=== PATIENT | male | born 1975 | race Caucasian/White ===

== ENCOUNTER → 2020-01-15 | Outpatient (CLI) | payer BC, OTHER ==
[~2020-01-15] VITALS: Ht 182.9 cm; Wt 81.7 kg
[~2020-01-15] MED LIST: NABUMETONE 500500 M1 PO; NEURONTIN300 MG PO
[2020-01-15 10:56] VITALS: BP 136/86
--- NOTE | 2020-01-15 11:11 | NUR ---
Pain Clinic Assessment: 1. History of Osteoarthritis: Not Applicable History of Rheumatoid Arthritis: Not Applicable 2. Height: 6 ft. 0 in. 182.9 cm. Weight: 180.2 lb. oz. 81.738 kg. Patient's BMI: 24.4 3. Vital Signs: BP: 136/86 Pulse: 70 Resp: 16 Temp: 02 Sat: 100 ECG Mon: 4. Pain Intensity: 4; 8 AT WORST 5. Fall Risk: Dizziness: N Needs help standing or walking: N Fallen in the last 3 months: N Fall risk comments: 6. Patient on Blood Thinner: None 7. History of Hypertension: Y 8. Opioid Therapy greater than 6 weeks: N Opiate Contract Signed: 9. Risk Assessment Tool Provided: 2-LOW RISK 10. Functional Assessment Tool: 11. Recreational Drug Use: Never Drug Type: Tobacco Use: Never Smoker Tobacco Type: Amount or Packs/day: How Many Years: Alcohol Use: No Frequency: Quant:
--- NOTE | 2020-01-22 09:19 | HPC ---
[facility] [place] [address] PAIN MANAGEMENT CONSULTATION Name: HELEN GEE Room #: REG SWETA Gabo#: [id number] Admission: 01/15/20 Attend Phys: Tio Turpin DO Discharge: Date of : 73 Report #: [id number] THIS REPORT FOR: cc: Tio Mae MD, James A. MD Johnson, James E. DO ~ DATE OF SERVICE: 01/15/2020 CHIEF COMPLAINT: Anterior and posterior leg pain. HISTORY OF PRESENT ILLNESS: As you know, the patient is a 44-year-old male who reports onset of anterior and posterior leg pain that began 12/20/2017. The patient has undergone multiple surgical interventions in the lumbar spine, the most recent performed was L4-L5 and L5-S1 ALIF and posterior instrumented fusion on 10/19/[address] Oconnor. This apparently improved the patient's baseline pain, but left him with anterior thigh and posterior leg pain that he describes as intermittent. He states that he has begun to experience more increasing shooting pain without inciting injury. He describes the pain as nondermatomal in distribution reporting both anterior and posterior thigh symptoms. He apparently contacted Neurosurgery to discuss his ongoing issues. He was sent for physical therapy. He has an MRI planned for next week for further evaluation of the lumbar spine, but also referred to our clinic to discuss options for treatment. He states that physical therapy has been helping. He has been in physical therapy for about 4 weeks. He states overall he is doing much better from a pain standpoint, but continues to experience intermittent symptoms. He has plans to undergo MRI of the lumbar spine per Dr. Oconnor's requesting next week. He has no new imaging for us to review today. He has been referred to our service to discuss treatment options for nondermatomal bilateral lower extremity pain involving the anterior and posterior thighs. The patient indicates pain is intermittent. He describes the pain as throbbing and sharp. He places current pain score 4/10, daily average of 4/10, the worst pain has been is 8/10. The patient states his pain is exacerbated with standing, sitting for any length of time, lying down. He states that walking, running, and working out improves his pain considerably. He has been referred to our service to discuss treatment options for nondermatomal bilateral lower extremity pain. PAST MEDICAL HISTORY: 1. Hypertension. 2. Emotional problems. PAST SURGICAL HISTORY: 1. Diskectomy, November 2005. 2. Diskectomy 2008. [address] [address] PAIN MANAGEMENT CONSULTATION Name: HELEN GEE Room #: REG [facility]#: [id number] Admission: 01/15/20 Attend Phys: Tio Turpin DO Discharge: Date of : 73 Report #: [id number] 3. Diskectomy June 2011. 4. L4-L5, L5-S1 fusion with instrumentation, 10/19/2018. SOCIAL HISTORY: The patient denies tobacco, alcohol or IV illicit drug use. He is employed as an administrative project coordinator. He is working, not receiving workmen's compensation or is trying to obtain disability benefits. He is not in litigation in regards to pain. He is unaccompanied at today's visit. REVIEW OF SYSTEMS: Positive for wearing corrective eyewear, bilateral anterior and posterior thigh pain. All other review of systems negative per 12-point review of systems other than those listed in history of present illness. Pain impact score 17 of 70 indicating mild interference of daily activities secondary to pain. ALLERGIES: No reported drug allergies. CURRENT MEDICATIONS: None. IMAGING: No imaging available. PHYSICAL EXAMINATION: VITAL SIGNS: Blood pressure 136/86, pulse is 70, respiratory rate 16 and unlabored. The patient is 100% on room air, height 6 feet tall, weight 180.2 pounds, BMI calculated 24.4. GENERAL: Well-developed, well-nourished, well-hydrated 44-year-old male appearing stated age, pain is rated today at 4/10, at worst 8/10, though this has not been present for about a month since he started physical therapy. HEENT: Normocephalic, atraumatic. Pupils equal, round and reactive to light. Extraocular muscles are intact. NEUROLOGIC: Speech is fluent. The patient deemed a good historian. LUNGS: Clear, no wheeze, rhonchi or rales. CARDIOVASCULAR: Regular. No appreciable gallop, no rub. ABDOMEN: Soft, nontender, nondistended, normoactive bowel sounds. EXTREMITIES: Show no clubbing, no cyanosis, no edema. MUSCULOSKELETAL: Lower extremity strength appears symmetrical 5/5, intact to light touch from L1 through S2 dermatomes. Seated straight leg raising negative. Supine straight leg raising negative. Darryl's test is negative. Modified Gaenslen's positive only for some axial back pain. There is limited range of motion due to fusion of the L4-L5 and L5-S1 level. There are well-healed surgical scars. Muscle bulk and tone appears symmetrical in comparing lower extremities. I am unable to elicit any unusual focal loss of sensation or loss of strength. ASSESSMENT: 1. Residual anterior thigh pain. [facility] [address] [place] [address] PAIN MANAGEMENT CONSULTATION Name: HELEN GEE Room #: REG SWETA Ayon#: [id number] Admission: 01/15/20 Attend Phys: Tio Turpin DO Discharge: Date of : 73 Report #: [id number] 2. Residual posterior thigh pain. 3. Neuropathic symptoms. 4. Chronic pain. PLAN: 1. Based on today's physical exam and history the patient has provided, the description the patient uses in regards to pain as well as the nondermatomal distribution of symptoms, it would appear the patient is suffering from chronic neuropathic symptoms. The patient comes to us today without imaging studies. Apparently, he is to undergo MRI next week. We would love to review those findings before making any decisions on more aggressive treatment options. It would appear based on the nondermatomal distribution that medication may be beneficial. We also discussed the possibility of epidural injections to address symptoms, though again given the lack of dermatomal distribution I am not confident those would provide much in the way of benefit. We also discussed other treatment options today. The following was discussed with the patient. We discussed physical therapy, stretching exercises and core strengthening from which the patient is seen about a 50% improvement in symptoms. We recommend he continue these activities. He himself reports that he improves with activity and does not do well with inactivity, recommend continuing highly active exercise program and lifestyle. We discussed medication management utilizing neuropathic medication to address his nondermatomal pain as well as a possible addition of a nonsteroidal anti-inflammatory to help with any inflammatory process that may be contributing. We also discussed that injections may be necessary, but given that we have no current imaging, I would not recommend initiating some type of injection at this time. The findings may require an injection, but at this point, we would not recommend interventional treatment. We also discussed spinal cord stimulator therapy and ultimately surgical options to address symptoms. After reviewing the risks and benefits of all proposed treatment options, the patient chose to begin with medication management. 2. We will start the patient on gabapentin starting at 600 mg p.o. at bedtime. We will then continue this for 3 nights, then increase to 900 mg p.o. at bedtime. No improvement in symptoms, no side effects of sleepiness, disorientation, confusion, mental slowing, then increase slowly every 3 days to escalate dose to 900 mg b.i.d. Again, no improvement in symptoms, no side effects, then continue the titration to reach 900 mg t.i.d. The patient was given a titration in written form to follow to escalate medications as needed. A prescription of gabapentin 300 mg tablets was sent to his local pharmacy for #[id number], to reach the titration goal of 900 mg t.i.d. 3. The patient will be started on nabumetone 500 mg dose 1 tab p.o. t.i.d. This will be used for baseline anti-inflammatory effects. He will watch for dyspepsia, worsening of blood pressure, lower extremity edema with its use. If he notes any side effects, discontinue immediately, call for further instructions. [address] [address] PAIN MANAGEMENT CONSULTATION Name: HELEN GEE Room #: REG SWETA Ayon#: [id number] Admission: 01/15/20 Attend Phys: Tio Turpin DO Discharge: Date of : 73 Report #: [id number] 4. The patient will undergo MRI of the lumbar spine per Dr. Oconnor's request next week. We will await the findings to discuss with the patient further. He will be following up with his surgeon, Dr. Oconnor in regards to those findings as well. We will come to a consensus for treatment once this imaging has been completed. Given the nondermatomal distribution of symptoms at present, I do not feel we are going to be seeing any new lateralizing disk features or increased neural foraminal stenosis. There is a possibility central canal stenosis has occurred post-surgery, though given the lack of any major trauma that should be pretty unusual, though we cannot rule it out entirely given the wide distribution of symptoms in a nondermatomal fashion. The central canal stenosis would be a potential source. We will await the findings of the MRI. 5. The patient and I did discuss that once we stabilize on a dose of medication that is appropriate, we will be returning his care to the team either his referring physician or his primary care physician to continue the therapy. We are hopeful we can obtain improved analgesic benefit quite quickly, so that the patient can continue to participate in daily activities. We wish to thank Dr. Jose Carlos Oconnor for the opportunity to see the patient in consultation. We will keep you apprised of his response to treatment as we address his nondermatomal bilateral lower extremity symptoms involving the anterior and posterior thighs. Again, we wish to thank you for the opportunity to see the patient in consultation. <ELECTRONICALLY SIGNED> By: Tio Turpin DO 01/22/20 [id number] Tio Turpin DO /nt
== END ==
LOC: PAIN 06:59
PROVIDERS: ATTEND Anesthesiology Pain Medicine
DX: M79.651 Pain in right thigh (principal); M79.652 Pain in left thigh; M79.604 Pain in right leg; M79.605 Pain in left leg; G89.29 Other chronic pain

== ENCOUNTER → 2020-02-12 | Outpatient (CLI) | payer BC, OTHER ==
[~2020-02-12] VITALS: Ht 182.9 cm; Wt 80.9 kg
[2020-02-12 10:49] VITALS: BP 122/85
--- NOTE | 2020-02-12 11:02 | NUR ---
Pain Clinic Assessment: 1. History of Osteoarthritis: Not Applicable History of Rheumatoid Arthritis: Not Applicable 2. Height: 6 ft. 0 in. 182.9 cm. Weight: 178.4 lb. oz. 80.922 kg. Patient's BMI: 24.2 3. Vital Signs: BP: 122/85 Pulse: 76 Resp: 14 Temp: 02 Sat: 99 ECG Mon: 4. Pain Intensity: 0 5. Fall Risk: Dizziness: N Needs help standing or walking: N Fallen in the last 3 months: N Fall risk comments: 6. Patient on Blood Thinner: None 7. History of Hypertension: Y 8. Opioid Therapy greater than 6 weeks: N Opiate Contract Signed: 9. Risk Assessment Tool Provided: 2-LOW RISK 10. Functional Assessment Tool: 11. Recreational Drug Use: Never Drug Type: Tobacco Use: Never Smoker Tobacco Type: Amount or Packs/day: How Many Years: Alcohol Use: No Frequency: Quant:
== END ==
LOC: PAIN 06:56
PROVIDERS: ATTEND Anesthesiology Pain Medicine
DX: G89.29 Other chronic pain (principal); M79.606 Pain in leg, unspecified; I10 Essential (primary) hypertension; M79.659 Pain in unspecified thigh; G62.9 Polyneuropathy, unspecified